=== PATIENT | male | born 2000 | race Two or more races ===

== ENCOUNTER 2023-03-20 12:08 | Day surgery (SDC) | payer OTHER ==
[~2023-03-20] VITALS: Ht 170.2 cm; Wt 78.5 kg
[2023-03-20] MEDS ORDERED: MIDAZOLAM 2 MG/2 ML VIAL ONE ×2 (13:24)
[2023-03-20] MEDS ORDERED: fentaNYL citrate 0.05 MG/ML VIAL ONE (13:24)
[2023-03-20] MEDS ORDERED: MIDAZOLAM 2 MG/2 ML VIAL IVP ONE (13:50)
== END 2023-03-20 14:45 | disposition home or self-care (01) ==
LOC: MDS 12:08 → MMU 12:10 → MDS 14:45
PROVIDERS: ATTEND Internal Medicine Gastroenterology
DX: R10.13 Epigastric pain (principal); K21.9 Gastro-esophageal reflux disease without esophagitis; K31.89 Other diseases of stomach and duodenum; K59.00 Constipation, unspecified; Z79.899 Other long term (current) drug therapy
CPT/HCPCS: 36415; 86677; J2250; J3010